=== PATIENT | female | born 1980 | race African-American/Black ===

== ENCOUNTER 2017-01-21 23:44 | Emergency (ER) | payer MEDICAID ==
[2017-01-22 00:16] LABS: URINE APPEARANCE CLEAR; URINE BILIRUBIN NEGATIVE (NEGATIVE); URINE BLOOD NEGATIVE (NEGATIVE); URINE COLOR YELLOW; URINE GLUCOSE (UA) NEGATIVE (NEGATIVE); URINE KETONE NEGATIVE (NEGATIVE); URINE LEUKOCYTE ESTERASE NEGATIVE (NEGATIVE); URINE NITRITE NEGATIVE (NEGATIVE); URINE PROTEIN NEGATIVE (NEGATIVE); URINE UROBILINOGEN 0.2 E.U./dL (0.20 - 1.00)
[2017-01-22 00:17] LABS: HCG,QUALITATIVE URINE NEGATIVE (NEGATIVE)
--- NOTE | 2017-01-22 00:19 | Emergency Department Record ---
History of Present Illness - General Chief Complaint: Abdominal Pain Stated Complaint: ABDOMINAL PAIN Time Seen by Provider: 01/22/17 00:13 Source: Patient Mode of Arrival: Ambulatory - History of Present Illness Initial Comments: The patient states that she has LLQ AP and suprapubic left abdominal pain that did not go away when she took a laxative to relieve what she thought was constipation. She denies back pain, nausea, vomiting, vaginal DC. she has had no sexual activity for the past 18 months since her fiance , is not concerned about STD's. MD Complaint: Abdominal pain Onset/Timin -: Days(s) Location: LLQ Severity: Severe Quality: Cramping Consistency: Constant, Getting worse Improves With: Nothing Worsens With: Nothing - Related Data Patient : No Home Medications Medication Instructions Recorded Confirmed Last Taken Amlodipine Besylate [Norvasc] 10 mg PO DAILY 01/22/15 01/21/17 07/25/15 Labetalol HCl [Trandate] 300 mg PO BID 01/22/15 01/21/17 07/26/15 07:30 Previous Rx's Medication Instructions Recorded Ciprofloxacin HCl [Cipro] 500 mg PO Q12HR #20 tablet 01/22/17 Metronidazole [Flagyl] 500 mg PO QID #40 tablet 01/22/17 Tramadol HCl [Ultram] 50 mg PO Q8H #14 tab 01/22/17 Allergies Allergy/AdvReac Type Severity Reaction Status Date / Time No Known Drug Allergies Allergy Verified 07/26/15 19:14 Travel Screening - Travel/Exposure Within Last 30 Days Have you traveled within the last 30 days?: No Review of Systems Reviewed: No additional complaints except as noted below Constitutional: Reports: As per HPI. Denies: Chills, Fever, Malaise, Night sweats, Weakness, Weight change Eyes: Reports: As per HPI. Denies: Eye discharge, Eye pain, Photophobia, Vision change ENT: Reports: As per HPI. Denies: Congestion, Dental pain, Ear pain, Epistaxis , Hearing loss, Throat pain Respiratory: Reports: As per HPI. Denies: Cough, Dyspnea, Hemoptysis, Stridor, Wheezes Cardiovascular: Reports: As per HPI. Denies: Arrhythmia, Chest pain, Dyspnea on exertion, Edema, Murmurs, Orthopnea, Palpitations, Paroxysmal nocturnal dyspnea, Rheumatic Fever, Syncope Endocrine: Reports: As per HPI. Denies: Fatigue, Heat or cold intolerance, Polydipsia, Polyuria Gastrointestinal: Reports: As per HPI. Denies: Abdominal pain, Constipation, Diarrhea, Hematemesis, Hematochezia, Melena, Nausea, Vomiting Genitourinary: Reports: As per HPI. Denies: Abnormal menses, Discharge, Dyspareunia, Dysuria, Frequency, Hematuria, Incontinence, Retention, Urgency Musculoskeletal: Reports: As per HPI. Denies: Arthralgia, Back pain, Gout, Joint swelling, Myalgia, Neck pain Skin: Reports: As per HPI. Denies: Bruising, Change in color, Change in hair/ nails, Lesions, Pruritus, Rash Neurological: Reports: As per HPI. Denies: Abnormal gait, Confusion, Headache, Numbness, Paresthesias, Seizure, Tingling, Tremors, Vertigo, Weakness Psychiatric: Reports: As per HPI. Denies: Anxiety, Auditory hallucinations, Depression, Homicidal thoughts, Suicidal thoughts, Visual hallucinations Hematological/Lymphatic: Reports: As per HPI. Denies: Anemia, Blood Clots, Easy bleeding, Easy bruising, Swollen glands Past Medical History - SOCIAL HISTORY Smoking Status: Current every day smoker Alcohol Use: None Drug Use: None - RESPIRATORY Hx Respiratory Disorders: No - CARDIOVASCULAR Hx Cardio Disorders: Yes Hx Chest Pain: Yes Hx Hypertension: Yes - NEURO Hx Neuro Disorders: No Hx Headaches: Yes (Fiorecet prescribed) - GI Hx GI Disorders: No - Hx Genitourinary Disorders: No - ENDOCRINE Hx Endocrine Disorders: No Hx Diabetes: No Hx Thyroid Disease: No - MUSCULOSKELETAL Hx Musculoskeletal Disorders: No Hx Arthritis: Yes Comment:: States she was supposed to F/U with Dr about arthritic pain - PSYCH Hx Psych Problems: No Hx Anxiety: Yes Hx Depression: Yes - HEMATOLOGY/ONCOLOGY Hx Hematology/Oncology Disorders: No Hx Anemia: Yes Hx Blood Transfusions: No Family Medical History Any Significant Family History?: Yes Hx Anxiety: Mother Hx Cancer: Grandparents Hx Depression: Father, Mother Hx Diabetes: Mother Hx HTN: Father Hx Resp Disorders: Father Hx Seizures: Mother Physical Exam - General General Appearance: Alert, Oriented x3, Cooperative, No acute distress, Other ( obese, ambulated without difficulty) - Head Head exam: Normal inspection - Eye Eye exam: Normal appearance, PERRL Pupils: Normal accommodation - ENT ENT exam: Normal exam, Mucous membranes moist, Normal external ear exam, Normal orophraynx, TM's normal bilaterally Ear exam: Normal external inspection. negative: External canal tenderness Nasal Exam: Normal inspection. negative: Discharge, Sinus tenderness Mouth exam: Normal external inspection, Tongue normal Teeth exam: Normal inspection. negative: Dental caries Throat exam: Normal inspection. negative: Tonsillar erythema, Tonsillar exudate - Neck Neck exam: Normal inspection, Full ROM. negative: Tenderness - Respiratory Respiratory exam: Normal lung sounds bilaterally. negative: Respiratory distress - Cardiovascular Cardiovascular Exam: Regular rate, Normal rhythm, Normal heart sounds - GI/Abdominal GI/Abdominal exam: Soft, Normal bowel sounds, Tenderness (tender over lowest pannus near inguinal region on left, remainder of abdomen nontender. Difficult to assess due to morbid obesity and numerous adipose folds of skin.) - Rectal Rectal exam: Deferred - exam: Deferred - Extremities Extremities exam: Normal inspection, Full ROM, Normal capillary refill. negative: Calf tenderness, Pedal edema, Tenderness - Back Back exam: Reports: Normal inspection, Full ROM. Denies: CVA tenderness (R), CVA tenderness (L), Muscle spasm, Rash noted, Tenderness - Neurological Neurological exam: Alert, Normal gait, Oriented X3, Reflexes normal - Psychiatric Psychiatric exam: Normal affect, Normal mood - Skin Skin exam: Dry, Intact, Normal color, Warm Course Vital Signs 01/21/17 23:55 Temperature 98.6 F Pulse Rate [ 92 H Pulse Ox Probe] Respiratory 20 Rate Blood Pressure 224/147 [Right Arm] Pulse Ox 98 - Reevaluation(s) Reevaluation #1: Patient has been drinking contrast awaiting her CT scan. 01/22/17 02:59 Reevaluation #2: Patient is sleeping while awaiting [facility] report. 01/22/17 03:22 Medical Decision Making - Management Options MDM Management: No Additional Work-up Planned - Data Complexity MDM Data: Labs Ordered and/or Reviewed, X-Ray Ordered and/or Reviewed (Contrast Ct Abd/Pelvis: Acute sigmoid diverticulitis without free air or abscesses per [facility].) - Lab Data Result diagrams: 01/22/17 00:25 01/22/17 00:25 Disposition Disposition: Discharge Clinical Impression: Sigmoid diverticulitis Disposition: Home, Self-Care Condition: (1) Good Instructions: Diverticulitis (ED) Additional Instructions: Take antibiotics until gone. No alcohol while taking flagyl Ultram as directed if needed until gone. Follow up with PCP 7 days for recheck. Prescriptions: Ciprofloxacin HCl [Cipro] 500 mg PO Q12HR #20 tablet Metronidazole [Flagyl] 500 mg PO QID #40 tablet Tramadol HCl [Ultram] 50 mg PO Q8H #14 tab Quality - Quality Measures Quality Measures: N/A - Blood Pressure Screening Does Patient Have Any of the Following: Active Dx of HTN Blood Pressure Classification: Hypertensive Reading Systolic Measurement: 182 Diastolic Measurement: 125 Screening for High Blood Pressure: Patient Exclusion, Hx of HTN [G9744]
[2017-01-22] MEDS: 0.9 % SODIUM CHLORIDE 1,000 ML BAG IV ONE (00:30)
[2017-01-22] MEDS: KETOROLAC 30 MG/ML VIAL IVP ONE (00:30)
[2017-01-22 00:31] LABS: BASO % 0.3 % (0-6); EOS % 2.2 % (0-6); GRAN % 45.7 % (47-80); HEMATOCRIT 42.9 % (35.0-47.0); HEMOGLOBIN 14.6 gm/dl (11.6-16.0); LYMPH % 44.6 % (16-45); MEAN CELL VOLUME 89.9 fl (81-97); MEAN CORPUSCULAR HEMOGLOBIN 30.6 pg (27-33); MEAN PLATELET VOLUME 10.3 fl (7.4-10.4); MONO % 7.2 % (0-9); PLATELET COUNT 251 K/uL (130-400); RED BLOOD COUNT 4.77 M/uL (3.80-5.40); RED CELL DISTRIBUTION WIDTH 13.1 % (11.5-14.5); WHITE BLOOD COUNT W/O DIFF 6.9 K/uL (4.2-12.2)
[2017-01-22 00:41] LABS: ANION GAP 7.8 (7-16); BLOOD UREA NITROGEN 11 mg/dL (7-17); CARBON DIOXIDE 25.2 mmol/L (22-30); EST GLOMERULAR FILTRATION RATE > 60 ml/min; GLUCOSE,RANDOM 92 mg/dL (70-110)
[2017-01-22] MEDS: METRONIDAZOLE 250 MG TABLET PO ONE (03:45)
[2017-01-22] MEDS: POTASSIUM CHLORIDE 20 MEQ TABLET PO ONE (03:45)
[2017-01-22] MEDS: CIPROFLOXACIN HCL 500 MG TABLET PO ONE (03:45)
[2017-01-22] MEDS: TRAMADOL HCL 50 MG TABLET PO ONE (03:45)
--- NOTE | 2017-01-23 15:01 | CT SCAN REPORT ---
EXAM: EMERGENCY CT OF THE ABDOMEN AND PELVIS WITH CONTRAST HISTORY: LEFT LOWER QUADRANT ABDOMINAL PAIN, POSSIBLE HERNIA. PRIOR APPENDECTOMY. TECHNIQUE: Axial CT scan of the abdomen and pelvis was obtained following both oral and IV contrast administration utilizing a dose of 100 ml of Omnipaque 300 as the IV contrast. A preliminary report was provided by [facility]. Comparison: None. FINDINGS: No calcified gallstones are seen within the gallbladder. No definite hepatic, splenic, adrenal, pancreatic, or renal mass identified. There is some thickening of the wall of the upper sigmoid colon with hazy increased density in the adjacent pericolonic adipose tissue. There is at least one diverticulum seen in this region as well and this presumably represents mild changes of acute sigmoid diverticulitis. No discreet peridiverticular abscess identified. A very small amount of free fluid in the cul-de-sac may simply be physiologic in nature. There are a few diverticula seen elsewhere in the colon, but no additional focus to suggest acute diverticulitis elsewhere identified. Oral contrast given has passed throughout the small bowel into the colon with no small bowel obstruction evident. The appendix is not identified consistent with the surgical history. No free intraperitoneal air identified. Some facet joint arthropathy in the lower lumbar spine. There is probably some mild edema in the subcutaneous tissues of the anterior abdominal wall. The uterus is tilted slightly towards the left. IMPRESSION: 1. FINDINGS LIKELY REPRESENTING MILD CHANGES OF ACUTE SIGMOID DIVERTICULITIS IN THE REGION OF THE UPPER SIGMOID COLON. NO PERIDIVERTICULAR ABSCESS EVIDENT. 2. POSTOP APPENDECTOMY. 3. DEGENERATIVE CHANGE IN THE LOWER LUMBAR SPINE. 4. SOME MILD EDEMA IN THE ANTERIOR ABDOMINAL WALL. 5. VERY SMALL AMOUNT OF FREE FLUID IN THE PELVIS MAY SIMPLY BE PHYSIOLOGIC. NO FREE AIR EVIDENT. JOB NUMBER: [id number] [facility]
== END 2017-01-22 03:52 | disposition home or self-care (01) ==
LOC: ER 23:44
DX: K57.32 Diverticulitis of large intestine without perforation or abscess without bleeding (principal)
CPT/HCPCS: 99284 ×2; 96374; 85025; 80048; 81003; 81025; 74177; Q9967; J1885; J7030

== ENCOUNTER 2017-01-25 18:36 | Emergency (ER) | payer MEDICAID ==
--- NOTE | 2017-01-25 19:44 | Emergency Department Record ---
History of Present Illness - General Chief Complaint: Abdominal Pain Stated Complaint: DIVERTICULITIS Time Seen by Provider: 01/25/17 19:37 Source: Patient Mode of Arrival: Ambulatory Limitations: No limitations - History of Present Illness Initial Comments: 36 yo female presents with abdominal pain. She was seen on 01/22/17. She had a CT scan in the ED that demonstrated acute sigmoid diverticulitis. no FA or abscess. She is on Cipro and Flagyl. She denies any fever. She was better for a day. She reports after a long day at work the pain has now returned. No vomiting. No blood in the stools. No diarrhea but the stools are mildly soft. 01/22 was the first episode of diverticulitis. 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) Associated Symptoms: Denies other symptoms - Related Data Home Medications Medication Instructions Recorded Confirmed Last Taken Amlodipine Besylate [Norvasc] 10 mg PO DAILY 01/22/15 01/25/17 07/25/15 Labetalol HCl [Trandate] 300 mg PO BID 01/22/15 01/25/17 07/26/15 07:30 Previous Rx's Medication Instructions Recorded Ciprofloxacin HCl [Cipro] 500 mg PO Q12HR #20 tablet 01/22/17 Metronidazole [Flagyl] 500 mg PO QID #40 tablet 01/22/17 Tramadol HCl [Ultram] 50 mg PO Q8H #14 tab 01/22/17 Allergies Allergy/AdvReac Type Severity Reaction Status Date / Time No Known Drug Allergies Allergy Verified 07/26/15 19:14 Review of Systems Constitutional: Denies: Chills, Fever, Malaise, Weakness Eyes: Denies: Eye discharge ENT: Denies: Congestion, Throat pain Respiratory: Denies: Cough Cardiovascular: Denies: Chest pain, Syncope Endocrine: Denies: Fatigue Gastrointestinal: Reports: As per HPI, Abdominal pain. Denies: Diarrhea, Hematemesis, Hematochezia, Nausea, Vomiting Genitourinary: Denies: Dysuria, Urgency Musculoskeletal: Denies: Arthralgia, Back pain, Joint swelling, Myalgia Skin: Denies: Bruising, Change in color, Rash Neurological: Denies: Headache, Numbness, Weakness Psychiatric: Denies: Anxiety Hematological/Lymphatic: Denies: Blood Clots, Easy bleeding, Easy bruising Past Medical History - SOCIAL HISTORY Smoking Status: Current every day smoker Drug Use: None - RESPIRATORY Hx Respiratory Disorders: No - CARDIOVASCULAR Hx Cardio Disorders: Yes Hx Chest Pain: Yes Hx Hypertension: Yes - NEURO Hx Neuro Disorders: No Hx Headaches: Yes (Fiorecet prescribed) - GI Hx GI Disorders: No - Hx Genitourinary Disorders: No - ENDOCRINE Hx Endocrine Disorders: No Hx Diabetes: No Hx Thyroid Disease: No - MUSCULOSKELETAL Hx Musculoskeletal Disorders: No Hx Arthritis: Yes Comment:: States she was supposed to F/U with Dr about arthritic pain - PSYCH Hx Psych Problems: No Hx Anxiety: Yes Hx Depression: Yes - HEMATOLOGY/ONCOLOGY Hx Hematology/Oncology Disorders: No Hx Anemia: Yes Hx Blood Transfusions: No Family Medical History Hx Anxiety: Mother Hx Cancer: Grandparents Hx Depression: Father, Mother Hx Diabetes: Mother Hx HTN: Father Hx Resp Disorders: Father Hx Seizures: Mother Physical Exam - General General Appearance: Alert, Oriented x3, Cooperative, No acute distress Limitations: No limitations - Head Head exam: Normal inspection - Eye Eye exam: Normal appearance. negative: Conjunctival injection, Periorbital swelling - ENT ENT exam: Normal exam Ear exam: Normal external inspection Nasal Exam: Normal inspection Mouth exam: Normal external inspection - Neck Neck exam: Normal inspection, Full ROM. negative: Tenderness - Respiratory Respiratory exam: Normal lung sounds bilaterally. negative: Respiratory distress - Cardiovascular Cardiovascular Exam: Regular rate, Normal rhythm, Normal heart sounds Peripheral Pulses: 2+: Radial (R), Radial (L) - GI/Abdominal GI/Abdominal exam: Soft, Tenderness (very mild tender LLQ but soft to palpation , very benign examination). negative: Diminished bowel sounds, Distended, Guarding, Hypoactive bowel sounds, Rebound, Rigid - Rectal Rectal exam: Deferred - exam: Deferred - Extremities Extremities exam: Normal inspection, Full ROM, Normal capillary refill. negative: Tenderness - Back Back exam: Reports: Normal inspection, Full ROM. Denies: CVA tenderness (R), CVA tenderness (L), Muscle spasm, Rash noted, Tenderness - Neurological Neurological exam: Alert, Normal gait, Oriented X3, Reflexes normal - Psychiatric Psychiatric exam: Normal affect, Normal mood - Skin Skin exam: Dry, Intact, Normal color, Warm Course - Reevaluation(s) Reevaluation #1: No acute changes on the CBC or CMP from the prior visit This was discussed with the patient Given her pain I discussed the risks and benefits of re-CT scan Her father had a ruptured colon from diverticulitis and she request CT with the knowledge of additional radiation exposure. 01/25/17 20:37 Reevaluation #2: The CT is unchanged without any worsening of findings, no FF, no abscess, no FA. No signs of complications She is without fever, no nausea or vomiting, no diarrhea, abdomen is very soft She is still a good outpatient candidate. She was encourage to stay home tomorrow, rest, stay well hydrated We discussed reasons to return and follow up with her PCP this week 01/25/17 22:15 Medical Decision Making - Lab Data Result diagrams: 01/25/17 19:50 01/25/17 19:50 Disposition Disposition: Discharge Clinical Impression: Sigmoid diverticulitis Disposition: Home, Self-Care Condition: (1) Good Instructions: Diverticulitis (ED) Additional Instructions: Rest and stay well hydrated Return if you have uncontrolled pain, fever, vomiting or any new concerns Continue your antibiotics Call your doctor tomorrow for a recheck this week Forms: Patient Portal Access Time of Disposition: 22:19 Quality - Quality Measures Quality Measures: N/A - Blood Pressure Screening Does Patient Have Any of the Following: No Blood Pressure Classification: Hypertensive Reading Systolic Measurement: 157 Diastolic Measurement: 99 Screening for High Blood Pressure: < Pre-Hypertensive BP, F/U Documented > [ [id number]] Pre-Hypertensive Follow-up Interventions: Referral to alternative/primary care provider.
[2017-01-25] MEDS ORDERED: KETOROLAC 30 MG/ML VIAL IVP ONE (19:45)
[2017-01-25] MEDS ORDERED: 0.9 % SODIUM CHLORIDE 1,000 ML BAG IV ONE (19:45)
[2017-01-25] MEDS ORDERED: CIPROFLOXACIN LACTATE/D5W 400 MG/200 ML BAG IVPB ONE (19:46)
[2017-01-25] MEDS ORDERED: METRONIDAZOLE IVPB 500 MG/100 ML BAG IVPB ONE (19:46)
[2017-01-25 19:59] LABS: BASO % 0.4 % (0-6); EOS % 4.3 % (0-6); GRAN % 60.7 % (47-80); HEMATOCRIT 41.4 % (35.0-47.0); HEMOGLOBIN 14.1 gm/dl (11.6-16.0); LYMPH % 27.8 % (16-45); MEAN CELL VOLUME 90.6 fl (81-97); MEAN CORPUSCULAR HEMOGLOBIN 30.9 pg (27-33); MEAN CORPUSCULAR HGB CONC 34.1 g/dl (32-36); MEAN PLATELET VOLUME 9.7 fl (7.4-10.4); MONO % 6.8 % (0-9); PLATELET COUNT 228 K/uL (130-400); RED BLOOD COUNT 4.57 M/uL (3.80-5.40); RED CELL DISTRIBUTION WIDTH 13.2 % (11.5-14.5); WHITE BLOOD COUNT W/O DIFF 5.6 K/uL (4.2-12.2)
[2017-01-25 20:10] LABS: ANION GAP 6.4 (7-16); BLOOD UREA NITROGEN 10 mg/dL (7-17); CARBON DIOXIDE 26.6 mmol/L (22-30); CREATININE 1.1 mg/dL (0.52-1.04); EST GLOMERULAR FILTRATION RATE > 60 ml/min; GLUCOSE,RANDOM 123 mg/dL (70-110)
[2017-01-25 20:42] LABS: URINE APPEARANCE CLEAR; URINE BILIRUBIN SMALL (NEGATIVE); URINE BLOOD NEGATIVE (NEGATIVE); URINE COLOR YELLOW; URINE GLUCOSE (UA) NEGATIVE (NEGATIVE); URINE KETONE TRACE (NEGATIVE); URINE LEUKOCYTE ESTERASE TRACE (NEGATIVE); URINE NITRITE NEGATIVE (NEGATIVE); URINE UROBILINOGEN 0.2 E.U./dL (0.20 - 1.00)
[2017-01-25 21:01] LABS: URINE BACTERIA 2+; URINE EPITHELIAL CELLS 0 - 2 (FEW); URINE MUCUS LIGHT
--- NOTE | 2017-01-27 22:56 | CT SCAN REPORT ---
EXAM: CT SCAN ABDOMEN/PELVIS W CONTRAST HISTORY: ABDOMINAL PAIN. TECHNIQUE: CT of the abdomen and pelvis was performed following the IV administration of 100 mL of Omnipaque-300 contrast. Lack of oral contrast limits evaluation of bowel. COMPARISON: 01/22/17 CT. FINDINGS: Limited evaluation of the lung bases is unremarkable. Osseous structures are grossly intact. The liver, spleen, adrenal glands, pancreas, and kidneys are unremarkable. Residual contrast in the colon. No gross evidence for bowel obstruction. Status post appendectomy. No free air. Multiple sigmoid diverticula with persistent inflammatory changes consistent with diverticulitis. A trace of free fluid in the pelvis with bilateral ovarian follicles. IMPRESSION: LITTLE CHANGE FROM THE PRIOR EXAM. ACUTE SIGMOID DIVERTICULITIS. NO ABSCESS OR FREE AIR. JOB NUMBER: [id number] [facility]
== END 2017-01-25 22:46 | disposition home or self-care (01) ==
LOC: ER 18:36
DX: K57.32 Diverticulitis of large intestine without perforation or abscess without bleeding (principal); I10 Essential (primary) hypertension; F17.210 Nicotine dependence, cigarettes, uncomplicated
CPT/HCPCS: 99284 ×2; 96365; 96375; 85025; 80048; 81001; 74177; Q9967; J0744; J1885; J7030